=== PATIENT | female | born 2000 | race Hispanic/Latino ===

== ENCOUNTER 2022-03-02 13:17 | Emergency (ER) | payer OTHER ==
[~2022-03-02] VITALS: Ht 160 cm; Wt 81.6 kg
[2022-03-02] MEDS ORDERED: IBUPROFEN 600 MG TABLET PO ONE (13:30)
[2022-03-02] MEDS ORDERED: ACET-2247 PO (13:47)
[2022-03-02 14:01] VITALS: BP 140/68
== END 2022-03-02 13:59 | disposition home or self-care (01) ==
LOC: EDH 13:17
DX: S93.601A Unspecified sprain of right foot, initial encounter (principal); S93.401A Sprain of unspecified ligament of right ankle, initial encounter; E11.9 Type 2 diabetes mellitus without complications; X58.XXXA Exposure to other specified factors, initial encounter; Y93.89 Activity, other specified; Y92.89 Other specified places as the place of occurrence of the external cause; Y99.8 Other external cause status
CPT/HCPCS: 73610; 73630